=== PATIENT | male | born 1940 | race Hispanic/Latino ===

== ENCOUNTER 2017-07-04 11:00 | Day surgery (SDC) | payer MEDICARE ==
--- NOTE | 2017-07-04 12:18 | Anesthesia Day of Surgery ---
Anesthesia Day of Surgery - Day of Surgery Patient Examined: Yes Patient H&P Reviewed: Yes Patient is NPO: Yes
--- NOTE | 2017-07-04 12:18 | Anesthesia Consultation ---
Anesthesia Consult and Med Hx Date of service: 07/04/17 - Airway Anesthetic Teeth Evaluation: Good ROM Head & Neck: Adequate Mental/Hyoid Distance: Adequate Mallampati Class: Class II Intubation Access Assessment: Probably Good - Pulmonary Exam CTA: Yes - Cardiac Exam Cardiac Exam: RRR - Pre-Operative Health Status ASA Pre-Surgery Classification: ASA2 Proposed Anesthetic Plan: General - Pulmonary Hx Smoking: No Hx Sleep Apnea: No (NELLY PRE SCREEN HIGH RISK. ) - Cardiovascular System Hx Hypertension: Yes - Endocrine Hx Non-Insulin Dependent Diabetes: No Hx Hypothyroidism: Yes (ON MEDS) - Other Systems Hx Cancer: No
[2017-07-04] MEDS ORDERED: NACL BACTERIOSTATIC INFILTRATI ONE (12:25)
[2017-07-04] MEDS ORDERED: DIPRIVAN 10 MG/ML IV ONE (12:40)
[2017-07-04] MEDS ORDERED: XYLOCAINE MPF 2% ONE (12:41)
[2017-07-04] MEDS ORDERED: DILAUDID ONE (12:42)
[2017-07-04] MEDS ORDERED: PEPCID PO NR (13:00)
[2017-07-04] MEDS ORDERED: VERSED IV NR (13:00)
[2017-07-04] MEDS ORDERED: NACL 0.9% 1000 ML 1,000 ML IV SCH (13:00)
[2017-07-04] MEDS ORDERED: ANCEF/STERILE WATER 2 GM/20 ML IV NR (13:00)
[2017-07-04] MEDS ORDERED: XYLOCAINE 1% 20 mL ONE (13:00)
[2017-07-04] MEDS ORDERED: MARCAINE 0.25% INFILTRATI ONE ×2 (13:01→14:50)
[2017-07-04] MEDS ORDERED: ZOFRAN ONE (13:53)
[2017-07-04] MEDS ORDERED: DECADRON ONE (13:53)
[2017-07-04] MEDS ORDERED: NACL 0.9% IR ONE (14:06)
[2017-07-04] MEDS ORDERED: ePHEDrine SULFATE ONE (14:37)
--- NOTE | 2017-07-04 17:44 | Post Anesthesia Evaluation ---
- Post Anesthesia Evaluation Patient Participated: Yes Airway Patent: Yes Stable Respiratory Function: Yes Nausea/Vomiting: No Temp > 96.8F: Yes Pain Manageable: Yes Adequeate Hydration: Yes Anesthesia Complications: No Block Receding Appropriately: Not Applicable Patient on Ventilator: No
[2017-07-04 19:01] VITALS: BP 108/67
--- NOTE | 2017-07-20 10:18 | Operative Report ---
PREOPERATIVE DIAGNOSES: Hydrocele and spermatocele. POSTOPERATIVE DIAGNOSES: Hydrocele and spermatocele with testicle pain. ESTIMATED BLOOD LOSS: Minimal. COMPLICATIONS: None. PROCEDURES: Hydrocelectomy and Spermatocelectomy . ESTIMATED BLOOD LOSS: Minimal. IMPLANTS: None. BLOOD TRANSFUSION: None. COMPLICATIONS: None. CLINICAL INDICATIONS: The patient counseled on RCBA, antibiotics, SCDs. The patient states it is okay with his testicle now or later or removal, was having some pain on this side, was counseled on options ____. DESCRIPTION OF PROCEDURE: The patient transferred to the OR suite. Antibiotics SCDs, supine position, anesthesia, prepped and draped in standard fashion and a decision was made through a transverse incision in the right hemiscrotum approximately 2 cm, removed, the testicle, underlying sac, and tunica vaginalis. The tunica vaginalis was opened up. There was some fluid and hydrocele fluid, some of this was cauterized and retracted posteriorly and sutured. Later on, there was some spermatocele. There was noted to be what appeared to be likely spermatocele or complex hydrocele components. At this point, we dissected as best as possible around the spermatocele, there was some inflammation. We tried to get down to the base, which was tied with Vicryl and this area was cauterized and ____ sent for specimen. At this point, we opened up an additional area and then opened all these areas adequately and sutured back the tissue in such a fashion that it would hopefully not close back on within itself and form a fluid collection with the overlying cup like layers including spermatocele, hydrocele, and tunica vaginalis. Once again, these were sutured not put pressure on the cord and sutured to not allow to fold on top of itself. At this point, the area was irrigated multiple times. A stab incision was made to the inferior scrotum. A quarter-inch [place] drain was passed, suture with 2-0 silk. The testicle was fixated to the midline septum and anteriorly so that it would not rotate or torse. We then began our midline septum. We then began our rotation. Deeper layers approximated with a 4-0 running Vicryl, more superficial layer was done with running 3-0 chromic with some interrupted 4-0 Vicryl. The area was cleaned ____. The patient awakened and transferred to the PACU in good and stable condition. JOB# [id number] ATS/NTS
== END 2017-07-04 17:55 | disposition home or self-care (01) ==
LOC: OR 11:00
PROVIDERS: ATTEND Urology
DX: N43.3 Hydrocele, unspecified (principal); N43.40 Spermatocele of epididymis, unspecified; I10 Essential (primary) hypertension; E03.9 Hypothyroidism, unspecified
CPT/HCPCS: 54840; 55040; 88304; J0690; J1100; J1170; J2250; J2405; J2704; J7030